=== PATIENT | male | born 1970 | race American Indian/Alaskan Native ===

== ENCOUNTER 2016-11-04 15:21 | Outpatient (CLI) | payer OTHER | END 2016-11-04 15:22 | disposition home or self-care (01) | LOC: LABHHL 15:21 | PROVIDERS: ATTEND Internal Medicine Gastroenterology | DX: K21.9 Gastro-esophageal reflux disease without esophagitis (principal); K30 Functional dyspepsia | CPT/HCPCS: 88305; 88342 ==